=== PATIENT | male | born 1995 | race African-American/Black ===

== ENCOUNTER 2016-09-02 21:42 | Emergency (ER) | payer SELFPAY ==
--- NOTE | 2016-09-02 21:53 | EDM.PDOC ---
ED HPI GENERAL MEDICAL PROBLEM - General Chief Complaint: Allergic Reaction Stated Complaint: ALERGIC REACTION? Time Seen by Provider: 09/02/16 21:46 - History of Present Illness INITIAL COMMENTS - FREE TEXT/NARRATIVE: HISTORY AND PHYSICAL: History of present illness: Patient is 20-year-old male presents return pruritic rash and hives he states he had some shellfish earlier but he is eating as many times in the past he had no shortness of breath with swelling difficulty swallowing or speaking he denies other concern he has no significant past medical surgical history Review of systems: As per history of present illness and below otherwise all systems reviewed and negative. Past medical history: As per history of present illness and as reviewed below otherwise noncontributory. Surgical history: As per history of present illness and as reviewed below otherwise noncontributory. Social history: No reported history of drug or alcohol abuse. Family history: As per history of present illness and as reviewed below otherwise noncontributory. Physical exam: HEENT: Atraumatic, normocephalic, pupils reactive, negative for conjunctival pallor or scleral icterus, mucous membranes moist, throat clear, neck supple, nontender, trachea midline. Lungs: Clear to auscultation, breath sounds equal bilaterally, chest nontender. Heart: S1S2, regular, negative for clicks, rubs, or JVD. Abdomen: Soft, nondistended, nontender. Negative for masses or hepatosplenomegaly. Negative for costovertebral tenderness. Pelvis: Stable nontender. Genitourinary: Deferred. Rectal: Deferred. Extremities: Atraumatic, negative for cords or calf pain. Neurovascular unremarkable. Neuro: Awake, alert, oriented. Cranial nerves II through XII unremarkable. Cerebellum unremarkable. Motor and sensory unremarkable throughout. Exam nonfocal. Skin: The patient is a diffuse urticaria type rash on his trunk and upper extremities Diagnostics: None Therapeutics: 50 mg IM Solu-Medrol and 25 mg IM epinephrine 0.3 I am Impression: #1 urticaria Definitive disposition and diagnosis as appropriate pending reevaluation and review of above. - Related Data Allergies Allergy/AdvReac Type Severity Reaction Status Date / Time acetaminophen [From Tylenol] Allergy Swollen Verified 09/02/16 21:52 Tongue coconut Allergy Vomiting Verified 09/02/16 21:52 Past Medical History - Past Health History Medical/Surgical History: Denies Medical/Surgical History HEENT History: Reports: Otitis Media Respiratory History: Reports: Asthma (hx childhood) Gastrointestinal History: Reports: Other (See Below) - Infectious Disease History Infectious Disease History: Reports: Chicken Pox - Past Surgical History HEENT Surgical History: Reports: Adenoidectomy, Myringotomy w Tube(s), Tonsillectomy Social & Family History - Family History Family Medical History: Noncontributory HEENT: Reports: Impaired Vision Cardiac: Reports: High Cholesterol, Hypertension OBGYN: Reports: Musculoskeletal: Reports: Arthritis, Osteoporosis - Tobacco Use Smoking Status *Q: Never Smoker Second Hand Smoke Exposure: No - Caffeine Use Caffeine Use: Reports: Soda Other Caffeine Use: 3 sodas a day - Alcohol Use Days Per Week of Alcohol Use: 0 - Recreational Drug Use Recreational Drug Use: No - Living Situation & Occupation Living situation: Reports: with Family Occupation: Employed ED ROS ALLERGIC REACTION - Review of Systems Review Of Systems: ROS reveals no pertinent complaints other than HPI. ED EXAM GENERAL NO PERIP PULSE - Physical Exam Exam: See Below (See dictation) Course - Vital Signs Last Recorded V/S: Last Vital Signs Temp 36.2 C 09/02/16 21:48 Pulse 86 09/02/16 21:48 Resp 18 09/02/16 21:48 BP 133/66 09/02/16 21:48 Pulse Ox 97 09/02/16 21:48 - Orders/Labs/Meds Meds: Medications Discontinued Medications Generic Name Dose Route Start Last Admin Trade Name Freq PRN Reason Stop Dose Admin Diphenhydramine HCl 50 mg 09/02/16 21:55 09/02/16 22:03 Benadryl IM 09/02/16 21:56 50 mg ONETIME ONE Administration Epinephrine HCl 0.3 mg 09/02/16 21:54 09/02/16 22:05 Adrenalin 1:1000 IM 09/02/16 21:55 0.3 mg ONETIME ONE Administration Methylprednisolone Sodium Succinate 125 mg 09/02/16 21:55 09/02/16 22:03 Solu-Medrol IM 09/02/16 21:56 125 mg ONETIME ONE Administration Departure - Departure Time of Disposition: 22:28 Disposition: Home, Self-Care 01 Condition: good Clinical Impression: Urticaria - Discharge Information Additional Instructions: The following information is given to patients seen in the emergency department who are being discharged to home. This information is to outline your options for follow-up care. We provide all patients seen in our emergency department with a follow-up referral. The need for follow-up, as well as the timing and circumstances, are variable depending upon the specifics of your emergency department visit. If you don't have a primary care physician on staff, we will provide you with a referral. We always advise you to contact your personal physician following an emergency department visit to inform them of the circumstance of the visit and for follow-up with them and/or the need for any referrals to a consulting specialist. The emergency department will also refer you to a specialist when appropriate. This referral assures that you have the opportunity for followup care with a specialist. All of these measure are taken in an effort to provide you with optimal care, which includes your followup. Under all circumstances we always encourage you to contact your private physician who remains a resource for coordinating your care. When calling for followup care, please make the office aware that this follow-up is from your recent emergency room visit. If for any reason you are refused follow-up, please contact the [facility] emergency department at and asked to speak to the emergency department charge nurse. [facility] [address] [place] [id number] Medrol Benadryl as prescribed avoid any possible allergens including shellfish as discussed follow up primary medical doctor in our clinic above return as needed as discussed
[2016-09-02] MEDS ORDERED: EPINEPHrine 1:1000 1 MG/ML SDV IM ONE (21:54)
[2016-09-02] MEDS ORDERED: diphenhydrAMINE 50 MG/ML SDV IM ONE (21:55)
[2016-09-02] MEDS ORDERED: methylPREDNISolone Sodium Succinate 125 MG/2 ML SDV IM ONE (21:55)
[2016-09-02 23:00] VITALS: BP 140/60
== END 2016-09-02 22:44 | disposition home or self-care (01) ==
LOC: MW.ED 21:42
DX: L50.9 Urticaria, unspecified (principal); Z88.8 Allergy status to other drugs, medicaments and biological substances; Z91.018 Allergy to other foods; Z96.22 Myringotomy tube(s) status; Z98.890 Other specified postprocedural states
CPT/HCPCS: 96372; 99283; J0171; J1200; J2930

== ENCOUNTER 2018-01-10 22:55 | Emergency (ER) | payer SELFPAY ==
[2018-01-10] MEDS ORDERED: Ketorolac 60 MG/2 ML SDV IM ONE (23:22)
--- NOTE | 2018-01-10 23:25 | EDM.PDOC ---
ED HPI GENERAL MEDICAL PROBLEM - General Chief Complaint: Chest Pain Stated Complaint: HARD TO BREATH IN AND RT SIDE HUTS Time Seen by Provider: 01/10/18 23:15 - History of Present Illness INITIAL COMMENTS - FREE TEXT/NARRATIVE: HISTORY AND PHYSICAL: History of present illness: The patient is a healthy 22-year-old male who presents with 3 days of right upper anterior chest wall pain that has been constant. He has not had a fever nausea vomiting or mid chest pain or left-sided chest pain. He says is worse with movement and with different activities but is able to play basketball and played football today without the discomfort but says that when he is done with the activities he feels the discomfort. He has no abdominal pain no vomiting no diarrhea no flank or back pain. He's had no direct trauma to the area. He has not had a cough or upper respiratory tract infection. His eating and drinking normally. He also says that the outside of his right ear hurts but he hasn't noticed any redness or swelling. The patient is not taking anything over-the- counter or done anything to assist with the discomfort. Review of systems: As per history of present illness and below otherwise all systems reviewed and negative. Past medical history: As per history of present illness and as reviewed below otherwise noncontributory. Surgical history: As per history of present illness and as reviewed below otherwise noncontributory. Social history: No reported history of drug or alcohol abuse. Family history: As per history of present illness and as reviewed below otherwise noncontributory. Physical exam: General: Well-developed well-nourished man who is nontoxic and vital signs are reviewed by me. HEENT: Atraumatic, normocephalic, pupils reactive, negative for conjunctival pallor or scleral icterus, mucous membranes moist, throat clear, neck supple, nontender, trachea midline. TM on the right is within normal limits and there is no external ear or swelling redness defects or deformities appreciated but there is tenderness when I touch the external ear. Lungs: Clear to auscultation, breath sounds equal bilaterally, chest wall with tenderness with palpation in the right upper area without defects deformities or crepitus. I can reproduce the pain on palpation. No wheezing stridor or work of breathing Heart: S1S2, regular rate and rhythm no overt murmurs Abdomen: Soft, nondistended, nontender. Negative for masses or hepatosplenomegaly. NABS. Pelvis: Stable nontender. Genitourinary: Deferred. Rectal: Deferred. Extremities: Atraumatic, negative for cords or calf pain. Neurovascular unremarkable. Neuro: Awake, alert, oriented. Cranial nerves II through XII unremarkable. Cerebellum unremarkable. Motor and sensory unremarkable throughout. Exam nonfocal. Diagnostics: EKG chest x-ray Therapeutics: Toradol Impression: Right chest wall pain Definitive disposition and diagnosis as appropriate pending reevaluation and review of above. right chest Pain Score (Numeric/FACES): 9 - Related Data Allergies Allergy/AdvReac Type Severity Reaction Status Date / Time acetaminophen [From Tylenol] Allergy Swollen Verified 09/02/16 21:52 Tongue coconut Allergy Vomiting Verified 09/02/16 21:52 Home Meds: Home Meds . [No Known Home Meds] 09/02/16 [History] Past Medical History - Past Health History Medical/Surgical History: Denies Medical/Surgical History HEENT History: Reports: Otitis Media Respiratory History: Reports: Asthma Gastrointestinal History: Reports: Other (See Below) - Infectious Disease History Infectious Disease History: Reports: Chicken Pox - Past Surgical History HEENT Surgical History: Reports: Adenoidectomy, Myringotomy w Tube(s), Tonsillectomy GI Surgical History: Reports: Appendectomy Social & Family History - Family History Family Medical History: Noncontributory HEENT: Reports: Impaired Vision Cardiac: Reports: High Cholesterol, Hypertension OBGYN: Reports: Musculoskeletal: Reports: Arthritis, Osteoporosis - Tobacco Use Smoking Status *Q: Current Every Day Smoker Years of Tobacco use: 2 Packs/Tins Daily: 1 - Caffeine Use Caffeine Use: Reports: Soda Other Caffeine Use: 3 sodas a day - Recreational Drug Use Recreational Drug Use: Yes Drug Use in Last 12 Months: Yes Recreational Drug Type: Reports: Marijuana/Hashish Recreational Drug Use Frequency: Socially - Living Situation & Occupation Living situation: Reports: with Family Occupation: Employed ED ROS GENERAL - Review of Systems Review Of Systems: ROS reveals no pertinent complaints other than HPI. ED EXAM, GENERAL - Physical Exam Exam: See Below (See dictation) Course - Vital Signs Last Recorded V/S: Last Vital Signs Temp 36.4 C 01/10/18 22:55 Pulse 56 L 01/10/18 22:55 Resp 18 01/10/18 22:55 BP 122/73 01/10/18 22:55 Pulse Ox 97 01/10/18 22:55 - Orders/Labs/Meds Orders: Active Orders 24 hr Category Date Time Status EKG Documentation Completion [RC] STAT Care 01/10/18 23:27 Active Chest 2V [CR] Stat Exams 01/10/18 23:22 Taken Meds: Medications Discontinued Medications Generic Name Dose Route Start Last Admin Trade Name Hardy PRN Reason Stop Dose Admin Ketorolac Tromethamine 60 mg 01/10/18 23:22 01/10/18 23:27 Toradol IM 01/10/18 23:23 60 mg ONETIME ONE Administration Departure - Departure Time of Disposition: 00:14 Disposition: Home, Self-Care 01 Condition: Good Clinical Impression: Right-sided chest wall pain - Discharge Information Referrals: PCP,None [Primary Care Provider] - Forms: ED Department Discharge Additional Instructions: The following information is given to patients seen in the emergency department who are being discharged to home. This information is to outline your options for follow-up care. We provide all patients seen in our emergency department with a follow-up referral. The need for follow-up, as well as the timing and circumstances, are variable depending upon the specifics of your emergency department visit. If you don't have a primary care physician on staff, we will provide you with a referral. We always advise you to contact your personal physician following an emergency department visit to inform them of the circumstance of the visit and for follow-up with them and/or the need for any referrals to a consulting specialist. The emergency department will also refer you to a specialist when appropriate. This referral assures that you have the opportunity for followup care with a specialist. All of these measure are taken in an effort to provide you with optimal care, which includes your followup. Under all circumstances we always encourage you to contact your private physician who remains a resource for coordinating your care. When calling for followup care, please make the office aware that this follow-up is from your recent emergency room visit. If for any reason you are refused follow-up, please contact the [facility] emergency department at and ask to speak to the emergency department charge nurse. [facility] Primary [facility]- Internal Medicine [facility] [address] [place] [address] Please take [id number] ibuprofen/Motrin 600-800 mg every 6-8 hours for the next 1-2 days to assist with the discomfort. Use ice or heat to areas of discomfort. Please call and schedule a follow-up appointment in the clinic and return to ER as needed and as discussed. - My Orders Last 24 Hours: My Active Orders 01/10/18 23:22 Chest 2V [CR] Stat 01/10/18 23:27 EKG Documentation Completion [RC] STAT - Assessment/Plan Last 24 Hours: My Active Orders 01/10/18 23:22 Chest 2V [CR] Stat 01/10/18 23:27 EKG Documentation Completion [RC] STAT
[2018-01-11 00:44] VITALS: BP 126/68
--- NOTE | 2018-01-12 14:58 | CR ---
EXAM DATE: 01/10/18 PATIENT'S AGE: 22 Patient: SHELDON MONTALVO Facility: [place], [place] Site . Site : 1995 Study: XRay Chest [id number] 11:36:43 PM Ordering Physician: Alexandro Storey Final Report: INDICATION: Pain and shortness of breath. COMPARISON: None available. FINDINGS: PA and lateral views of the chest were obtained. The patient was shielded for this examination. The lungs are clear. No focal or diffuse infiltrates are present. The heart is normal in size. The mediastinum is normal in appearance. The osseous structures are normal in appearance for the patient`s age. IMPRESSION: NORMAL CHEST 2 VIEWS. Dictated by Torey Monte MD @ Jan 11 2018 12:03AM (Electronic Signature) Report Signed by Proxy. SHEREE
== END 2018-01-11 00:40 | disposition home or self-care (01) ==
LOC: MW.ED 22:55
DX: R07.89 Other chest pain (principal); F17.210 Nicotine dependence, cigarettes, uncomplicated; Z91.018 Allergy to other foods; Z88.6 Allergy status to analgesic agent
CPT/HCPCS: 71046; 93005; 96372; 99284; J1885

== ENCOUNTER 2018-04-16 06:32 | Emergency (ER) | payer SELFPAY ==
--- NOTE | 2018-04-16 06:57 | EDM.PDOC ---
ED HPI GENERAL MEDICAL PROBLEM - General Chief Complaint: General Stated Complaint: FLU Time Seen by Provider: 04/16/18 06:51 Source of Information: Reports: Patient History Limitations: Reports: No Limitations - History of Present Illness INITIAL COMMENTS - FREE TEXT/NARRATIVE: History of present illness: []Patient's had 1-1/2 weeks of body aches, cough and chest congestion with subjective fevers and chills. Patient has no vomiting, diarrhea or abdominal pain. He states that he's been continuing to work as been taking Mucinex Review of systems: As per history of present illness and below otherwise all systems reviewed and negative. Past medical history: As per history of present illness and as reviewed below otherwise noncontributory. Surgical history: As per history of present illness and as reviewed below otherwise noncontributory. Social history: No reported history of drug or alcohol abuse. Family history: As per history of present illness and as reviewed below otherwise noncontributory. Physical exam: General: Well developed, well nourished in no respiratory distress HEENT: Atraumatic, normocephalic, pupils reactive, negative for conjunctival pallor or scleral icterus, mucous membranes moist, throat clear, neck supple, nontender, trachea midline. Lungs: Coarse to auscultation, breath sounds equal bilaterally, chest nontender. No chest wall accessory muscle use Heart: S1S2, regular, negative for clicks, rubs, or JVD. Abdomen: NABS, Soft, nondistended, nontender. Negative for masses or hepatosplenomegaly. Negative for costovertebral tenderness. Pelvis: Stable nontender. Genitourinary: Deferred. Rectal: Deferred. Extremities: Atraumatic, negative for cords or calf pain. Neurovascular unremarkable. Neuro: Awake, alert, oriented. Cranial nerves II through XII unremarkable. Cerebellum unremarkable. Motor and sensory unremarkable throughout. Exam nonfocal. Skin:warm and dry Diagnostics: Influenza negative Therapeutics: None ED Course: Unremarkable Impression: Acute bronchitis greater than 1 week Prescriptions: Amoxicillin Plan: Increase fluids use meds as directed follow-up with primary care return if symptoms worsen or change Definitive disposition and diagnosis as appropriate pending reevaluation and review of above. body aches Pain Score (Numeric/FACES): 8 - Related Data Allergies Allergy/AdvReac Type Severity Reaction Status Date / Time acetaminophen [From Tylenol] Allergy Swollen Verified 09/02/16 21:52 Tongue coconut Allergy Vomiting Verified 09/02/16 21:52 Home Meds: Home Meds Amoxicillin 500 mg PO TID #21 capsule 04/16/18 [Rx] Past Medical History - Past Health History Medical/Surgical History: Denies Medical/Surgical History HEENT History: Reports: Otitis Media Respiratory History: Reports: Asthma Gastrointestinal History: Reports: Other (See Below) - Infectious Disease History Infectious Disease History: Reports: Chicken Pox - Past Surgical History HEENT Surgical History: Reports: Adenoidectomy, Myringotomy w Tube(s), Tonsillectomy GI Surgical History: Reports: Appendectomy Social & Family History - Family History Family Medical History: Noncontributory HEENT: Reports: Impaired Vision Cardiac: Reports: High Cholesterol, Hypertension OBGYN: Reports: Musculoskeletal: Reports: Arthritis, Osteoporosis - Tobacco Use Smoking Status *Q: Never Smoker Second Hand Smoke Exposure: No - Caffeine Use Caffeine Use: Reports: None Other Caffeine Use: 3 sodas a day - Recreational Drug Use Recreational Drug Use: Yes Drug Use in Last 12 Months: Yes Recreational Drug Type: Reports: Marijuana/Hashish Recreational Drug Use Frequency: Not Used In Over 2 Months - Living Situation & Occupation Living situation: Reports: with Family Occupation: Employed ED ROS GENERAL - Review of Systems Review Of Systems: ROS reveals no pertinent complaints other than HPI. ED EXAM, GENERAL - Physical Exam Exam: See Below (See history of present illness) Course - Vital Signs Last Recorded V/S: Last Vital Signs Temp 97.8 F 04/16/18 06:38 Pulse 65 04/16/18 06:38 Resp 20 04/16/18 06:38 BP 150/81 H 04/16/18 06:38 Pulse Ox 94 L 04/16/18 06:38 Departure - Departure Time of Disposition: 07:25 Disposition: Home, Self-Care 01 Condition: Good Clinical Impression: Acute bronchitis Qualifiers: Bronchitis organism: unspecified organism Qualified Code(s): J20.9 - Acute bronchitis, unspecified - Discharge Information *PRESCRIPTION DRUG MONITORING PROGRAM REVIEWED*: No *COPY OF PRESCRIPTION DRUG MONITORING REPORT IN PATIENT JACOB: No Prescriptions: Amoxicillin 500 mg PO TID #21 capsule Referrals: PCP,None [Primary Care Provider] - Forms: ED Department Discharge Additional Instructions: The following information is given to patients seen in the emergency department who are being discharged to home. This information is to outline your options for follow-up care. We provide all patients seen in our emergency department with a follow-up referral. The need for follow-up, as well as the timing and circumstances, are variable depending upon the specifics of your emergency department visit. If you don't have a primary care physician on staff, we will provide you with a referral. We always advise you to contact your personal physician following an emergency department visit to inform them of the circumstance of the visit and for follow-up with them and/or the need for any referrals to a consulting specialist. The emergency department will also refer you to a specialist when appropriate. This referral assures that you have the opportunity for follow-up care with a specialist. All of these measure are taken in an effort to provide you with optimal care, which includes your follow-up. Under all circumstances we always encourage you to contact your private physician who remains a resource for coordinating your care. When calling for follow-up care, please make the office aware that this follow-up is from your recent emergency room visit. If for any reason you are refused follow-up, please contact the [facility] Emergency Department at and asked to speak to the emergency department charge nurse. Take meds as directed follow-up with primary care return if symptoms worsen or change. [facility] [address] [place] [id number]
[2018-04-16 07:56] VITALS: BP 138/77
== END 2018-04-16 07:56 | disposition home or self-care (01) ==
LOC: MW.ED 06:32
DX: J20.9 Acute bronchitis, unspecified (principal); Z91.018 Allergy to other foods; Z88.6 Allergy status to analgesic agent; Z96.22 Myringotomy tube(s) status; Z98.890 Other specified postprocedural states
CPT/HCPCS: 87804; 99283